=== PATIENT | female | born 1955 | race Caucasian/White ===

== ENCOUNTER 2018-11-25 15:37 | Emergency (ER) | payer OTHER ==
[~2018-11-25] VITALS: Ht 167.6 cm; Wt 74.8 kg
[2018-11-25 16:27] LABS: BASOPHILS ABSOLUTE AUTO 0.03 K/mm3 (0.00-0.23); BASOPHILS PERCENT AUTO 0 % (0-2); EOSINOPHILS ABSOLUTE AUTO 0.13 K/mm3 (0.00-0.68); EOSINOPHILS PERCENT AUTO 2 % (0-6); Hematocrit 40.5 % (33.0-51.0); Hemoglobin 13.1 g/dL (11.5-16.0); IMMATURE GRAN ABSOLUTE AUTO 0.02 K/mm3 (0.00-0.10); IMMATURE GRAN PERCENT AUTO 0 % (0-1); LYMPHOCYTES ABSOLUTE AUTO 1.67 K/mm3 (0.84-5.20); LYMPHOCYTES PERCENT AUTO 23 % (21-46); MONOCYTES ABSOLUTE AUTO 0.55 K/mm3 (0.16-1.47); MONOCYTES PERCENT AUTO 8 % (4-13); Mean Corpuscular HGB 31.4 pg (26.0-34.0); Mean Corpuscular HGB Conc 32.3 g/dL (31.5-36.5); Mean Corpuscular Volume 97 fL (80-100); Mean Platelet Volume 12.1 fL (9.1-12.4); NEUTROPHILS ABSOLUTE AUTO 4.91 K/mm3 (1.96-9.15); NEUTROPHILS PERCENT AUTO 67 % (41-73); Platelet Count 197 K/mm3 (150-400); RDW Coefficient Variation 13.6 % (11.7-14.2); RDW Standard Deviation 48.5 fL (35.1-46.3); Red Blood Cell Count 4.17 M/mm3 (3.80-5.20); White Blood Cell Count 7.31 K/mm3 (4.00-11.30)
[2018-11-25 16:45] LABS: Albumin, Blood 3.5 g/dL (3.4-5.0); Albumin/Globulin Ratio 1.3 (0.8-1.8); Bilirubin, Total 0.5 mg/dL (0.1-1.0); Calcium, Blood 8.6 mg/dL (8.5-10.1); Creatinine, Blood 1.05 mg/dL (0.40-1.00); Globulin, Blood 2.7 g/dL (2.2-4.0); Potassium, Blood 4.2 mmol/L (3.5-5.5); Total Protein, Blood 6.2 g/dL (6.4-8.2); Troponin I 0.058 ng/mL (0.000-0.040)
[2018-11-25] MEDS ORDERED: CARV6.25 PO (19:43)
[2018-11-25] MEDS ORDERED: LEVSOD25 PO (19:43)
[2018-11-25] MEDS ORDERED: LISI20 PO ×2 (19:43→19:44)
[2018-11-25] MEDS ORDERED: PRAV20 PO (19:44)
[2018-11-25] MEDS ORDERED: SPIR25 PO (19:44)
[2018-11-25] MEDS ORDERED: CETI5 (19:45)
[2018-11-25] MEDS ORDERED: SUMATRIPTAN (19:45)
[2018-11-25] MEDS ORDERED: WARF7.5 PO (19:45)
[2018-11-25] MEDS ORDERED: FLONASE (19:45)
[2018-11-25] MEDS ORDERED: Toprol Xl50 MG PO (20:01)
[2019-01-10] MEDS ORDERED: Estrace Vagin42.5 GM VAG (12:25)
[2019-01-10] MEDS ORDERED: Flonase 0.05% N16 GM (12:26)
[2019-01-10] MEDS ORDERED: LEVO-T50 MCG PO (12:26)
[2019-01-10] MEDS ORDERED: Loratadine10 MG PO (12:27)
[2019-01-10] MEDS ORDERED: Imitrex100 MG PO (12:27)
[2019-01-10] MEDS ORDERED: LISI5 PO (12:29)
[2019-01-10] MEDS ORDERED: METO50ER PO (12:30)
[2019-01-10] MEDS ORDERED: TORSE20 PO (12:30)
== END 2018-11-25 20:47 | disposition home or self-care (01) ==
LOC: ER 15:37
PROVIDERS: Physician Assistant
DX: I48.0 Paroxysmal atrial fibrillation (principal); Z79.899 Other long term (current) drug therapy; Z79.01 Long term (current) use of anticoagulants
CPT/HCPCS: 36415; 71046; 80053; 84484; 85025; 93005; 93010; 96374; 99285-25

== ENCOUNTER 2019-01-22 12:29 | Day surgery (SDC) | payer OTHER ==
[~2019-01-22] VITALS: Ht 167.6 cm; Wt 76.4 kg
[~2019-01-22 12:29] MED LIST: CARV6.25 PO; CETI5; Estrace Vagin42.5 GM VAG; FLONASE; Flonase 0.05% N16 GM; Imitrex100 MG PO; LEVO-T50 MCG PO; LEVSOD25 PO; LISI20 PO; LISI5 PO; Loratadine10 MG PO; METO50ER PO; PRAV20 PO; SPIR25 PO; SUMATRIPTAN; TORSE20 PO; Toprol Xl50 MG PO; WARF7.5 PO
--- NOTE | 2019-01-22 13:06 | NUR ---
01/22/[address] AWARE OF PREOP VITALS, LOW BP. NO ORDERS AT THIS TIME
--- NOTE | 2019-01-22 13:50 | NUR ---
01/22/19 1350 Porter Almanza PT CHANGED TO SUPINE PER DR POLLACK AT 1345. BACK ONTO LEFT SIDE PER DR POLLACK AT 1350. SWTICHED SCOPES TO UPPER SCOPE AT [address] POLLACK D/T TWISTY/ TIGHT COLON & NOT ADVANCING.
== END 2019-01-22 14:39 | disposition home or self-care (01) ==
LOC: ORSCSDS 12:29
PROVIDERS: Internal Medicine Gastroenterology
PROC: 0DBK8ZX Excision of Ascending Colon, Via Natural or Artificial Opening Endoscopic, Diagnostic (ICD-10-PCS; principal; 2019-01-22 13:45)
DX: Z12.11 Encounter for screening for malignant neoplasm of colon (principal); Z80.0 Family history of malignant neoplasm of digestive organs; Z86.010 Personal history of colon polyps; D12.2 Benign neoplasm of ascending colon; K57.30 Diverticulosis of large intestine without perforation or abscess without bleeding; K64.8 Other hemorrhoids; I10 Essential (primary) hypertension; G47.33 Obstructive sleep apnea (adult) (pediatric); E03.9 Hypothyroidism, unspecified; I48.0 Paroxysmal atrial fibrillation; Z79.01 Long term (current) use of anticoagulants; Z79.899 Other long term (current) drug therapy
CPT/HCPCS: 88305; J2704; J7120

== ENCOUNTER 2019-05-06 06:04 | Day surgery (SDC) | payer OTHER ==
[~2019-05-06] VITALS: Ht 170.2 cm; Wt 76.0 kg
[~2019-05-06 06:04] MED LIST changes: +ACET500 PO; +LEVSOD50 PO; +SUMA25 PO; +WARF5 PO
--- NOTE | 2019-05-06 07:11 | NUR ---
PT RESTING COMFORTABLY FOR BART PROCEDURE WITH ANESTHESIA. VSSruthi. JULIAN. CALL LIGHT WITHIN REACH
--- NOTE | 2019-05-06 07:53 | NUR ---
PT TOLERATES BART PROCEDURE WELL. VSS.NADN. RESTING COMFORTABLY. S/O TO BEDSIDE.
--- NOTE | 2019-05-06 08:31 | NUR ---
PT AND S/O VERBALIZES UNDERSTANDING WRITTEN AND VERBAL ORDERS. PT IV DC'D. CATH INTACT. PRESSURE DSG APPLIED. PT DC TO HOME VIA WC BY ESCORT/S/O
== END 2019-05-06 22:43 | disposition home or self-care (01) ==
LOC: MHTC 06:04
DX: I08.3 Combined rheumatic disorders of mitral, aortic and tricuspid valves (principal); I11.0 Hypertensive heart disease with heart failure; I50.9 Heart failure, unspecified; I48.91 Unspecified atrial fibrillation; G47.33 Obstructive sleep apnea (adult) (pediatric); E03.9 Hypothyroidism, unspecified; E78.5 Hyperlipidemia, unspecified; I42.0 Dilated cardiomyopathy; Z79.899 Other long term (current) drug therapy; Z99.89 Dependence on other enabling machines and devices; Z79.01 Long term (current) use of anticoagulants
CPT/HCPCS: 93312; 93325; J2704; J7030

== ENCOUNTER 2019-10-11 05:52 | Day surgery (SDC) | payer OTHER ==
[~2019-10-11] VITALS: Ht 170.2 cm; Wt 81.0 kg
[~2019-10-11 05:52] MED LIST changes: +CLEM1.34; +FLUT.05NI; -Flonase 0.05% N16 GM
--- NOTE | 2019-10-11 08:11 | NUR ---
Pt received from Dena Jeong RN pt is alert and oriented. She denies pain. Right radial site with cloth dot no bleeding or hematoma noted. Pt has right groin site with small dressing and opsite No hematoma or bleeding noted. Pt is in semi reverse [place]berg. Call light given. IV NS with 300 rajesh infusing into the left A/C.
--- NOTE | 2019-10-11 10:51 | NUR ---
SBAR TO [facility]. Pt stable.
--- NOTE | 2019-10-11 11:04 | NUR ---
1055 ASSUMED CARE OF PATIENT, PATIENT WATCHING TV, SUPINE IN BED ON BEDREST TILL 1200. VVS, AFIB NOTED. RIGHT GROIN AND RIGHT WRIST DRESSING CDI, NO HEMATOMA, NO BLEEDING.
--- NOTE | 2019-10-11 11:30 | NUR ---
ASSUMED CARE OF PATIENT. RIGHT GROIN SOFT NONTENDER.
[2019-10-11] MEDS ORDERED: ENOX120I SC (11:46)
--- NOTE | 2019-10-11 12:05 | NUR ---
AMBULATED TO BATHROOM. TOLERATED WELL. NO BLEEDING AT SITE.
--- NOTE | 2019-10-11 12:20 | NUR ---
DISCHARGE INSTRUCTIONS GIVEN WITH VERBAL AND WRITTEN UNDERSTANDING.
--- NOTE | 2019-10-11 12:35 | NUR ---
Dressing for discharge. IV removed intact.
--- NOTE | 2019-10-11 12:50 | NUR ---
DISCHARGED HOME VIA WHEELCHAIR. CD WITH PATIENT. FRIEND DRIVING.
== END 2019-10-11 13:23 | disposition home or self-care (01) ==
LOC: MHTC 05:52
PROC: 4A023N7 Measurement of Cardiac Sampling and Pressure, Left Heart, Percutaneous Approach (ICD-10-PCS; principal; 2019-10-11)
PROC: B201YZZ Plain Radiography of Multiple Coronary Arteries using Other Contrast (ICD-10-PCS; principal; 2019-10-11)
DX: Z01.810 Encounter for preprocedural cardiovascular examination (principal); I34.0 Nonrheumatic mitral (valve) insufficiency; I10 Essential (primary) hypertension; E78.5 Hyperlipidemia, unspecified; I48.0 Paroxysmal atrial fibrillation; E03.9 Hypothyroidism, unspecified; G47.33 Obstructive sleep apnea (adult) (pediatric); Z99.89 Dependence on other enabling machines and devices; I42.0 Dilated cardiomyopathy; Z79.899 Other long term (current) drug therapy; Z79.01 Long term (current) use of anticoagulants
CPT/HCPCS: 93458; 99152; 99153; C1769; C1894; G0278; J0690; J1644; J2250; J3010; J7030; Q9967